=== PATIENT | female | born 1955 | race Caucasian/White ===

== ENCOUNTER 2016-11-11 00:52 | Emergency (ER) | payer OTHER ==
[~2016-11-11 00:52] MED LIST: CHOL500050 PO; DIAZ10TA3 PO; LEVO125T6 PO; OMEP20CA11 PO; RES30 PO; TIZA4TAB4 PO; TRAMADOL PO; morphine sulfate PO
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
[2016-11-11 01:17] VITALS: PULSE 77; RESP 16; O2SAT 98
[2016-11-11 01:19] VITALS: BP 98/63
[2016-11-11 01:53] LABS: MONOCYTES % (AUTO) 6.2 % (4-12); Mean Corpuscular Hemoglobin 30.2 pg (27.0-35.0); Mean Corpuscular Volume 91.7 fL (81-100); NEUTROPHILS % (AUTO) 73.7 % (40-74); Platelet Count 246 bil/L (150-400)
[2016-11-11 06:47] VITALS: BP 104/70; PULSE 67; RESP 18; O2SAT 98
[2016-11-11] MEDS ORDERED: LEVO150T5 PO (08:47)
[2016-11-11] MEDS ORDERED: MORP15TA PO (08:50)
[2016-11-11] MEDS ORDERED: CALC600T12 PO (08:54)
[2016-11-11] MEDS ORDERED: [UNRECOGNIZED DRUG - CODE] PO (08:54)
[2016-11-11 11:02] VITALS: BP 153/83; PULSE 80; RESP 16; O2SAT 97
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
[2016-11-25] MEDS ORDERED: CLONIDINE PO (15:04)
== END 2016-11-11 15:40 | disposition home or self-care (01) ==
LOC: SED 00:52
DX: F43.21 Adjustment disorder with depressed mood (principal); F43.0 Acute stress reaction; R45.851 Suicidal ideations; G89.29 Other chronic pain; Z79.891 Long term (current) use of opiate analgesic; Z88.2 Allergy status to sulfonamides; Z88.8 Allergy status to other drugs, medicaments and biological substances
CPT/HCPCS: 36415; 80053; 81002; 82075; 84443; 85025; 99284; G0480

== ENCOUNTER 2017-03-18 17:35 | Emergency (ER) | payer OTHER ==
[~2017-03-18] VITALS: Ht 165.1 cm; Wt 87.2 kg
[~2017-03-18 17:35] MED LIST changes: +CALC600T12 PO; +CLONIDINE PO; -DIAZ10TA3 PO; -LEVO125T6 PO; +LEVO150T5 PO; -OMEP20CA11 PO; -TRAMADOL PO; +[UNRECOGNIZED DRUG - CODE] PO; -morphine sulfate PO
[2017-03-18 17:43] VITALS: BP 118/71; PULSE 96; RESP 20; O2SAT 98
--- NOTE | 2017-03-18 17:43 | ED.REPORT ---
HPI-Extremity Problem Lower Date of Service Mar 18, 2017 ED Provider: Carlos Cantu MD The pt is a 61 y/o female with a hx of HTN, hypothyroidism, and hx of chronic morphine use secondary to chronic pain who presents to the ED via EMS complaining of right knee pain and swelling onset last night. She has had this pain for over a year but it worsened last night after she exerted herself doing yard work. Associated sx include warmth on right knee, chills, and diaphoresis. She is having difficulty walking due to the pain. The pt is also concerned she may have a blood clot in her right leg. She also complains of right wrist pain and has an KAILA bandage wrapped around it. Nursing Notes Stated Complaint: RIGHT KNEE PAIN Nursing Notes Reviewed: Yes Allergies: Coded Allergies: gabapentin (Verified Allergy, Severe, 01/29/16) Sulfa (Sulfonamide Antibiotics) (Verified Allergy, Unknown, 01/29/16) Scheduled ([Clonidine]) PO BID USING FOR WITHDRAWL SYMPTOMS Levothyroxine (Levothyroxine) 150 Mcg Tablet 150 MCG PO DAILY Tizanidine (Tizanidine) 4 Mg Tablet 4 MG PO QID Scheduled PRN Cholecalciferol (Vitamin D3) (Vitamin D3) 50,000 Unit Capsule 50,000 UNIT PO DAILY PRN PRN For Anxiety or Agitation Temazepam (Temazepam) 30 Mg Cap 60 MG PO HS PRN PRN For Insomnia Miscellaneous Medications Calcium Carbonate (Calcium) 600 Mg Tablet 600 MG PO Vitamin E Acetate (Vitamin E) 1,000 Unit Capsule 1,000 UNIT PO General Time Seen by MD: 17:42 Chief Complaint Other (right knee pain) Hx Obtained From: Patient Arrived By: Ambulance Onset Occurred: Yesterday Symptom Duration: Since onset Location: : Knee right Quality: Painful Severity: Current: Moderate Severity: Maximum: Moderate Recent Healthcare: No recent doctor visit Similar Sx Previous: Yes Past Medical History Past Medical History Notes: PCP in [place] Dr. England (oncologist) Dr. Ayden Gilmore (pain management) Past Medical History chronic back, shoulder and neck pain (chronic morphine) thyroid problems Past Surgical History "multiple" toe surgeries wrist surgery Reports: Tonsillectomy Reports: Gastric bypass Smoking History Never Smoker Social History Other Social History: Local resident Ambulatory Status Independent Review of Systems Constitutional: Reports: Chills Musculoskeletal: Reports: Joint pain (right knee and right wrist), Joint swelling (right knee ) Skin: Reports Diaphoresis Complete sys rev & neg: except as marked. Physical Exam Initial Vital Signs Vital Signs (First) Date Time Temp Pulse Resp B/P Pulse Ox O2 Delivery O2 Flow Rate FiO2 03/18/17 17:43 37.7 96 20 118/71 98 Room Air Initial VS: Reviewed Head / Eyes: Atraumatic, Normocephalic Neck: Supple, Non-tender, Full range of motion Respiratory: Breath sounds normal, Clear to auscultation, No respiratory distress Cardiovascular: Regular rate & rhythm, Heart sounds normal, Intact distal pulses Abdomen / GI: Soft, Non-tender, No guarding, No rebound, No distention Skin: Warm, Dry, No cyanosis Neurologic: Alert, Oriented, Nonfocal Lower Extremity / Pelvis / MS: Atraumatic, No erythema, No deformity, Neurologic intact, Vascular intact Right Knee: Positive: Tenderness present... (Moderate), Warmth present Right knee has a scar consistent with previous knee replacement. No effusion. Ankle / Foot: Atraumatic, Full range of motion, No swelling, No erythema, Non- tender, No deformity, Neurologic intact, Vascular intact General/Constitutional: Awake, Alert, Cooperative Wrist / Hand: Atraumatic, No swelling (to right wrist), No erythema, Neurologic intact, Vascular intact Tenderness to the ulnar aspect of the right wrist. Interpretation & Diagnostics PROCEDURE: US VEINOUS LEG DUPLEX UNILATERAL, RIGHT IMPRESSION: No evidence of deep venous thrombosis. Dictated by: Olamide Austin M.D. on 03/18/2017 at 21:07 Approved by: Olamide Austin M.D. on 03/18/2017 at 21:07 Lab Results Interpretation Result Diagram: 03/18/17 1836 Test 03/18/17 18:36 03/18/17 19:18 White Blood Count 8.7th/mm3 (3.8-10.1) Red Blood Count 4.07mil/mm3 (3.90-5.20) Hemoglobin 12.6g/dL (12.0-15.6) Hematocrit 38.3% (35.0-46.0) Mean Corpuscular Volume 94.1fL (81-100) Mean Corpuscular Hemoglobin 31.0pg (27.0-35.0) Mean Corpuscular Hemoglobin Concent 32.9% (32.0-37.0) Red Cell Distribution Width 13.8% (12.3-15.4) Platelet Count 189bil/L (150-400) Neutrophils (%) (Auto) 82.6% (40-74) Lymphocytes (%) (Auto) 10.2% (14-46) Monocytes (%) (Auto) 6.1% (4-12) Eosinophils (%) (Auto) 0.8% (0-5) Basophils (%) (Auto) 0.2% (0-3) Erythrocyte Sedimentation Rate 13mm/hr (0-40) Hold Patel Top Tube Received (Received) X-Ray Interpretation Xray Interpretation: IMPRESSION: Degenerative changes. No visualized acute fracture or dislocation. However, if clinical concern and/or pain persist, short interval imaging followup in 7-10 days is recommended, as occult injury cannot be definitively excluded. Dictated by: Olamide Austin M.D. on 03/18/2017 at 18:36 Approved by: Olamide Austin M.D. on 03/18/2017 at 18:36 X-Ray Ordered: Wrist right Interpretation / Wet Read by: Interpret - Radiologist Xray Interpretation: IMPRESSION: No visualized acute fracture or dislocation. However, if clinical concern and/or pain persist, short interval imaging followup in 7-10 days is recommended, as occult injury cannot be definitively excluded. Dictated by: Olamide Austin M.D. on 03/18/2017 at 18:35 Approved by: Olamide Austin M.D. on 03/18/2017 at 18:36 X-Ray Ordered: Knee right Interpretation / Wet Read by: Interpret - Radiologist Re-Eval/Medical Decision Source of Hx: Old records Re-Evaluation/Progress #1: Time of Eval: 19:52 Re-Evaluation/Progress Note: Rechecked pt. Discussed the X-ray results and plan to do an ultrasound to rule out DVT. She understands and agrees with the plan. All questions answered. Re-Evaluation/Progress #2: Time of Eval: 20:55 Re-Evaluation/Progress Note: Discussed the US results and plan to discharge. The pt understands and agrees with the plan. All questions answered. F/U and RTER instructions given. Counseled Regarding: Diagnosis, Lab results, Need for follow-up, When/why to return to ED Discharge & Departure Departure Notes Mild tachycardia noted on DC. Not felt related to PE, infection, acute cardiac disease. Impression: Primary Impression: Right knee pain Chronicity: acute Qualified Code: M25.561 - Pain in right knee Additional Impression: Tendinitis of right wrist Disposition: Home Discharge Condition All VS Reviewed: Yes Condition: Stable Additional Instructions: Thank you for entrusting us with your care today. Your lab and imaging results are reassuring. There is no sign of a fracture or a blood clot or infection in your leg or wrist. Ice (keep ice wrapped in a towel and remove after 10-15 mins) elevate wrist and knee when able. Rest. Ibuprofen 600mg every 6-8 hours as needed for pain, take this with food. Follow up with your primary care provider for further evaluation. Return to the emergency department for fevers weakness in arm or leg. Referrals: OTHER,PHYSICIAN Scribe Attestation Portions of this note were transcribed by Sheeba Easley. I,, personally performed the history,physical exam and medical decision-making;I reviewed and confirmed the accuracy of the information in the transcribed note. Signed by García Lopez. 03/18/17 Carlos Cantu MD Mar 18, 2017 17:43 Sheeba Easley Mar 18, 2017 17:52
--- NOTE | 2017-03-18 18:38 | DRSVH ---
PROCEDURE: X-RAY RIGHT WRIST COMPLETE, MINIMUM THREE VIEWS ([id number]) INDICATIONS: r knee pain TECHNIQUE: 4 views of the wrist were acquired. COMPARISON: None. FINDINGS: Bones: No fractures or dislocations. No suspicious bony lesions. Radiocarpal and first MCP degener ative narrowing are present. Scaphoid view: No visualized fracture. Soft tissues: No suspicious soft tissue calcifications. IMPRESSION: Degenerative changes. No visualized acute fracture or dislocation. However, if clinical c oncern and/or pain persist, short interval imaging followup in 7-10 days is recommended, as occult in jury cannot be definitively excluded. Dictated by: Olamide Austin M.D. on 03/18/2017 at 18:36 Approved by: Olamide Austin M.D. on 03/18/2017 at 18:36
--- NOTE | 2017-03-18 18:38 | DRSVH ---
PROCEDURE: X-RAY RIGHT KNEE, THREE VIEWS ([id number]) INDICATIONS: r knee pain TECHNIQUE: 3 views of the knee were acquired. COMPARISON: None. FINDINGS: Bones: No fractures or dislocations. No suspicious bony lesions. The arthroplasty is present. Hete rotopic lateral femoral condyle calcifications are present, appearing chronic. Soft tissues: No joint effusion. No suspicious soft tissue calcifications. IMPRESSION: No visualized acute fracture or dislocation. However, if clinical concern and/or pain pe rsist, short interval imaging followup in 7-10 days is recommended, as occult injury cannot be defini tively excluded. Dictated by: Olamide Austin M.D. on 03/18/2017 at 18:35 Approved by: Olamide Austin M.D. on 03/18/2017 at 18:36
[2017-03-18 18:56] LABS: BASOPHILS % (AUTO) 0.2 % (0-3); EOSINOPHILS % (AUTO) 0.8 % (0-5); MONOCYTES % (AUTO) 6.1 % (4-12); Mean Corpuscular Volume 94.1 fL (81-100); NEUTROPHILS % (AUTO) 82.6 % (40-74); Platelet Count 189 bil/L (150-400)
[2017-03-18 19:15] LABS: ERYTHROCYTE SEDIMENTATION RATE 13 mm/hr (0-40)
[2017-03-18 21:06] VITALS: BP 105/65; PULSE 114; RESP 18; O2SAT 94
--- NOTE | 2017-03-18 21:09 | DRSVH ---
PROCEDURE: US VEINOUS LEG DUPLEX UNILATERAL, RIGHT INDICATIONS: r leg swelling and warmth TECHNIQUE: Real-time imaging, as well as color and pulse Doppler interrogation, were performed of the lower extr emity deep veins from the inguinal ligament to the popliteal fossa. COMPARISON: None. FINDINGS: The deep veins are normally compressible, and free of intraluminal thrombus. Color and pu lse Doppler demonstrate normal phasic intraluminal flow. There is normal augmentation response to di stal compression maneuver. IMPRESSION: No evidence of deep venous thrombosis. Dictated by: Olamide Austin M.D. on 03/18/2017 at 21:07 Approved by: Olamide Austin M.D. on 03/18/2017 at 21:07
== END 2017-03-18 21:03 | disposition home or self-care (01) ==
LOC: EDBD 17:35 → SED 17:35
DX: M25.561 Pain in right knee (principal); M77.8 Other enthesopathies, not elsewhere classified; I10 Essential (primary) hypertension; E03.9 Hypothyroidism, unspecified; Z88.2 Allergy status to sulfonamides; Z88.8 Allergy status to other drugs, medicaments and biological substances